=== PATIENT | female | born 1965 | race Caucasian/White ===

== ENCOUNTER → 2018-02-27 | Outpatient (CLI) | payer OTHER, BC ==
[2018-03-03 15:07] LABS: HPV 16 Negative (Negative); HPV 18 Negative (Negative); HPV OTHER HR TYPES Negative (Negative)
== END ==
LOC: LAB 19:53 → LAB SHORT 19:53
PROVIDERS: Physician Assistant
DX: Z01.411 Encounter for gynecological examination (general) (routine) with abnormal findings (principal)
CPT/HCPCS: 87624; G0145

== ENCOUNTER → 2018-05-27 | Outpatient (CLI) | payer OTHER, BC | END | disposition home or self-care (01) | LOC: LAB SHORT 08:03 → PLD 08:03 | DX: N84.1 Polyp of cervix uteri (principal) | CPT/HCPCS: 88305 ==

== ENCOUNTER 2019-01-06 09:16 | Day surgery (SDC) | payer OTHER, BC ==
[~2019-01-06] VITALS: Ht 160 cm; Wt 115.9 kg
[~2019-01-06 09:16] MED LIST: ALPR.25 PO; CLARITIN10 MG PO; Citalopram HBr40 MG PO; Prinivil10 MG PO; VENL75ER PO
[2019-01-06] MEDS ORDERED: ASPI81CH (09:51)
[2019-01-06] MEDS ORDERED: METF500 (09:52)
--- NOTE | 2019-01-06 10:24 | NUR ---
01/06/19 1024 Apolonia Chu 1ST IV ATTEMPT IN RIGHT HAND BY RXS UNABLE TO RETRIEVE FLASHBACK SECOND ATTEMPT IN RIGHT HAND BY RXS SUCCESSFUL
== END 2019-01-06 11:15 | disposition home or self-care (01) ==
LOC: ORSCSDS 09:16
PROVIDERS: Internal Medicine Gastroenterology
PROC: 0DBP8ZX Excision of Rectum, Via Natural or Artificial Opening Endoscopic, Diagnostic (ICD-10-PCS; principal; 2019-01-06 10:45)
DX: R19.5 Other fecal abnormalities (principal); C7A.026 Malignant carcinoid tumor of the rectum; K62.1 Rectal polyp; K57.30 Diverticulosis of large intestine without perforation or abscess without bleeding; I10 Essential (primary) hypertension; G47.33 Obstructive sleep apnea (adult) (pediatric); E78.5 Hyperlipidemia, unspecified; E66.01 Morbid (severe) obesity due to excess calories; Z68.42 Body mass index [BMI] 45.0-49.9, adult; Z79.899 Other long term (current) drug therapy
CPT/HCPCS: 82947; 88305; 88341; 88342; J2704; J7120

== ENCOUNTER → 2021-02-07 | Outpatient (CLI) | payer OTHER ==
[~2021-02-07] MED LIST changes: +ASPI81CH; +METF500
== END | disposition home or self-care (01) ==
LOC: LAB 13:17 → LAB SHORT 13:17
DX: D22.5 Melanocytic nevi of trunk (principal); D22.61 Melanocytic nevi of right upper limb, including shoulder; D22.71 Melanocytic nevi of right lower limb, including hip; L21.8 Other seborrheic dermatitis; L30.4 Erythema intertrigo; L08.9 Local infection of the skin and subcutaneous tissue, unspecified; L82.1 Other seborrheic keratosis; L57.8 Other skin changes due to chronic exposure to nonionizing radiation; R21 Rash and other nonspecific skin eruption; R23.3 Spontaneous ecchymoses
CPT/HCPCS: 87070; 87077; 87147; 87186; 87205

== ENCOUNTER → 2022-08-31 | Outpatient (CLI) | payer OTHER ==
[2022-08-31 14:46] LABS: Albumin, Blood 4.3 g/dL (3.4-5.0); Albumin/Globulin Ratio 1.1 (0.8-1.8); Bilirubin, Total 0.4 mg/dL (0.1-1.0); Bun/Creatinine Ratio 20.9 (12.0-20.0); Calcium, Blood 9.7 mg/dL (8.5-10.1); Creatinine, Blood 0.72 mg/dL (0.40-1.00); Potassium, Blood 4.9 mmol/L (3.5-5.5); Total Protein, Blood 8.3 g/dL (6.4-8.2)
[2022-09-02 06:11] LABS: HEMOGLOBIN A1C 6.4 % (4.8-5.6)
== END ==
LOC: LAB 11:40 → LAB SHORT 11:40
PROVIDERS: Physician Assistant
DX: E11.65 Type 2 diabetes mellitus with hyperglycemia (principal); I10 Essential (primary) hypertension
CPT/HCPCS: 80053; 83036

== ENCOUNTER → 2023-11-12 | Outpatient (CLI) | payer OTHER | END | disposition home or self-care (01) | LOC: LAB 13:31 → LAB SHORT 13:31 | DX: N84.1 Polyp of cervix uteri (principal) | CPT/HCPCS: 88305 ==

== ENCOUNTER → 2023-11-12 | Outpatient (CLI) | payer OTHER ==
[2023-11-19 16:12] LABS: HPV HIGH RISK BY TMA Not Detected; HPV SOURCE Cervical
== END ==
LOC: LAB SHORT 12:14 → LAB 12:14
PROVIDERS: Family Medicine
DX: Z01.419 Encounter for gynecological examination (general) (routine) without abnormal findings (principal)
CPT/HCPCS: 87624; G0123